=== PATIENT | female | born 1980 | race Caucasian/White ===

== ENCOUNTER → 2022-06-02 14:23 | Outpatient (BNVA) | payer MEDICAID, SELFPAY | PROVIDERS: PCP Family Medicine; Visit Provider Obstetrics & Gynecology | DX: Z01.818 Encounter for other preprocedural examination (principal); R87.611 Atypical squamous cells cannot exclude high grade squamous intraepithelial lesion on cytologic smear of cervix (ASC-H) | CPT/HCPCS: 81025; 88305; 88342 ==

== ENCOUNTER 2022-06-04 16:59 | Emergency (ER) | payer MEDICAID, SELFPAY ==
[2022-06-04 17:03] VITALS: BP 153/84; PULSE 87; RESP 18; TEMP 36.6; O2SAT 100
--- NOTE | 2022-06-04 17:08 | XRR_ITS ---
PROCEDURE INFORMATION: Exam: XR Chest Exam date and time: 06/04/2022 5:22 PM Age: 42 years old Clinical indication: Cough and dyspnea; Additional info: Dyspnea/cough TECHNIQUE: Imaging protocol: Radiologic exam of the chest. Views: 1 view. COMPARISON: No relevant prior studies available. FINDINGS: Lungs: Unremarkable. No consolidation. Bilateral probable nipple shadows. Pleural spaces: Unremarkable. No pleural effusion. No pneumothorax. Heart/Mediastinum: Unremarkable. No cardiomegaly. Bones/joints: Unremarkable. XR/XR chest 1V portable [id number] IMPRESSION: No acute findings.
--- NOTE | 2022-06-04 17:11 | W.ED.CHESTPA ---
HPI - Chest Pain General: Chief Complaint: Chest Pain Stated Complaint: SOB/chest tightness Time Seen by Provider: 06/04/22 17:07 Source: patient Mode of arrival: ambulatory History of Present Illness: 42-year-old female presents emergency room with complaint of sharp chest pain worse with inspiration with palpation is relieved by ibuprofen. She does not smoke but she does vape. She denies any fever sweats chills or productive cough. This has been going on for the last 4 days. No fever sweats chills no trauma. MD complaint: chest pain Onset (ago): day(s) (4) Pain location: parasternal Pain radiation: back Severity: moderate Quality: sharp Relieving factors: rest Exacerbating factors: inspiration, palpation and movement Associated symptoms: Deny abdominal pain, dyspnea, fever(s), nausea, palpitations or vomiting Review of Systems Const: Denies: fever(s), chills, body aches, change in appetite, fatigue or malaise ENMT: Denies: throat pain, ear or mastoid pain, nasal discharge or nasal congestion Card: Denies: chest pain, palpitations, irregular heart rhythm, edema, dyspnea on exertion or orthopnea Resp: Denies: dyspnea, productive cough or non-productive cough GI: Denies: abdominal pain, nausea, vomiting, hematemesis, coffee ground emesis, diarrhea, constipation, bloating, hematochezia or melena : Denies: flank pain, difficulty voiding, dysuria, urinary frequency or urinary urgency Skin/Breast: Denies: rash or pruritus PFSH ED PFSH: Medical History Anxiety and depression Asthma Current every day vaping quit smoking ~ 11/2021 Dental abscess Epidermoid cyst Nodule of skin of left lower leg Peripheral neuropathy Surgical History No pertinent past surgical history Family History Mother Diabetes Hypertension Grandmother Diabetes paternal Father Hypertension Denies family history of Colon cancer Ovarian cancer Heart disease Hypercholesteremia Breast cancer Uterine cancer Thyroid disease Stroke Social History Second hand smoke exposure: No Smoking risk assessment/counseling performed?: No Alcohol intake: current Alcohol intake frequency: few times a week Alcohol type: beer Desire information about alcohol rehabilitation?: No Counseling given: No Substance/Drug Use: never Desire information about substance/drug rehabilitation?: No Counseling given: No Physical Exam Const: COMMON NORMALS: no acute distress GENERAL APPEARANCE: cooperative and comfortable ORIENTATION/CONSCIOUSNESS: Yes awake, Yes oriented to person, Yes oriented to place and Yes oriented to time HENMT: COMMON NORMALS: normocephalic, atraumatic and hearing grossly normal bilaterally HEAD & SCALP: normocephalic and atraumatic Chest: OTHER: Reproducible pain with palpation across the sternum Resp: COMMON NORMALS: normal respiratory effort, No retractions, No use of accessory muscles and clear to auscultation bilaterally AUSCULTATION: clear to auscultation bilaterally Cardio: COMMON NORMALS: regular rate, regular rhythm and No murmurs present (Cardio) RATE: regular rate RHYTHM: regular rhythm GI: COMMON NORMALS: Soft to palpation and No hepatosplenomegaly present AUSCULTATION: Yes normoactive bowel sounds PALPATION: Yes Soft to palpation, No Tenderness to palpation present (GI), No Guarding due to palpation present (GI) and Yes No hepatosplenomegaly present Extremity: COMMON NORMALS: normal to inspection, capillary refill normal, no clubbing, cyanosis or edema, no calf tenderness and no pedal edema Neuro: SENSORIUM/ORIENTATION: Yes oriented to person, Yes oriented to place and Yes oriented to time Skin: COMMON NORMALS: no rashes or lesions noted GENERAL SKIN EXAM: no rashes or lesions noted Course Vital Signs: Vital signs: Vital Signs Temperature 97.8 F 06/04/22 17:03 Pulse Rate 80 06/04/22 17:30 Respiratory Rate 14 06/04/22 17:30 Blood Pressure 111/74 06/04/22 17:30 Pulse Oximetry 100 06/04/22 17:30 Oxygen Delivery Me thod Room Air 06/04/22 17:03 MDM - Chest Pain Medical Decision Making Pain reproducible with inspiration and palpation on the chest. EKG normal. Labs reviewed x-ray reviewed no acute findings. No pneumonia no fractures no pneumothorax. Symptoms not suggestive of PE. Will discharge patient home with anti-inflammatories. She did mention she had a rapid heart rate for a brief period of time was self terminating she is not had this before. Advised her if this persist to follow-up with her primary care doctor. While she was here there is no tachyarrhythmias noted on her monitor. Return if she has further problems. Medical Records I reviewed the patient's medical records. Lab Data I reviewed the patient's lab results. 06/04/22 17:20 06/04/22 17:20 Laboratory Results WBC 10.2 10^3/uL (4.0-10.0) H 06/04/22 17:20 RBC 4.97 10^6/uL (4.1-5.3) 06/04/22 17:20 Hgb 13.4 g/dL (11.5-15.3) 06/04/22 17:20 Hct 42.8 % (37.0-47.0) 06/04/22 17:20 MCV 86.1 fl (81-99) 06/04/22 17:20 MCH 27.0 pg (28.0-34.0) L 06/04/22 17:20 MCHC 31.3 g/dL (30.0-36.0) 06/04/22 17:20 RDW 14.1 % (12.1-15.1) 06/04/22 17:20 Plt Count 362 10^3/cmm (130-400) 06/04/22 17:20 MPV 9.0 fL (7.4-10.4) 06/04/22 17:20 Neut % (Auto) 67.7 % 06/04/22 17:20 Lymph % (Auto) 21.1 % 06/04/22 17:20 [place] % (Auto) 6.5 % 06/04/22 17:20 Eos % (Auto) 3.8 % 06/04/22 17:20 Baso % (Auto) 0.6 % 06/04/22 17:20 Neut # (Auto) 6.92 10^3/uL (1.8-7.7) 06/04/22 17:20 Lymph # (Auto) 2.2 10^3/uL (0.8-4.8) 06/04/22 17:20 [place] # (Auto) 0.7 10^3/uL (0.2-0.9) 06/04/22 17:20 Eos # (Auto) 0.4 10^3/uL (0.0-0.8) 06/04/22 17:20 Baso # (Auto) 0.1 10^3/uL (0.0-0.1) 06/04/22 17:20 Nucleated RBC % (auto) 0 % 06/04/22 17:20 Nucleated RBCs # 0.0 /100WBC 06/04/22 17:20 Sodium 138 mmol/L (136-145) 06/04/22 17:20 Potassium 3.4 mmol/L (3.5-5.1) L 06/04/22 17:20 Chloride 101 mmol/L (98-107) 06/04/22 17:20 Carbon Dioxide 26 mmol/L (22-29) 06/04/22 17:20 Anion Gap 14.4 (5-19) 06/04/22 17:20 BUN 16 mg/dL (6-20) 06/04/22 17:20 Creatinine 0.6 mg/dL (0.5-0.9) 06/04/22 17:20 GFR Calculation 110.2 mL/min (90-130) 06/04/22 17:20 Glucose 129 mg/dL (65-115) H 06/04/22 17:20 Calculated Osmolality 289 mOsm/kg (285-295) 06/04/22 17:20 Calcium 9.0 mg/dL (8.5-10.5) 06/04/22 17:20 Discharge Plan Discharge Patient Disposition: Home Clinical Impression: Musculoskeletal chest pain Condition: Stable Prescriptions: New diclofenac sodium 75 mg tablet,delayed release (DR/EC) 75 mg PO Q12H PRN (Reason: pain) Qty: 20 0RF No Action cetirizine [Zyrtec] 10 mg tablet 10 mg PO DAILY PRN (Reason: allergy symptoms) Qty: 60 0RF Discharge Orders: Discharge ED (Routine); Ordered 06/04/22 Ordered By: Kaveh Ayers Referrals: Malcolm Alexander MD [Primary Care Provider] - Discharge Diet: Usual diet Discharge Activity: Increase activity as tolerated Patient Instructions: Opioid Safety, Pain Management Activity Restrictions/Additional Instructions: You were seen today for chest pain that was reproducible with inspiration and palpation. This usually musculoskeletal chest pain your laboratory studies and EKG and chest x-ray are unremarkable. Use the anti-inflammatory given for relief of symptoms if your symptoms worsen or change recheck with your primary care doctor or return to the emergency room. Coding Level of Care Code ED Motion Picture Critic for Chilo Bermudez
--- NOTE | 2022-06-04 17:14 | ECG_ITS ---
[facility] Test Date: 2022-06-04 Pat Name: Debra Crowley Department: Room: Gender: Female [employer]: : 1980 Requested By: Kaevh Piña Order Number: [id number] Nav MD: Nahun Cox M.D. Measurements Intervals [place] Rate: 78 P: 40 PA: 137 QRS: 35 QRSD: 106 T: 56 QT: 374 QTc: 429 Interpretive Statements SINUS RHYTHM INCOMPLETE RIGHT BUNDLE BRANCH BLOCK [90+ ms QRS DURATION, TERMINAL R IN V1/V2, 40+ ms S IN I/aVL/V4/V5/V6] No previous ECG available for comparison Electronically Signed On 06-04-2022 22:32:44 CDT by Nahun Cox M.D. [email or web address]
--- NOTE | 2022-06-04 17:24 | PC.NURSE ---
Pt hooked up to continuous bedside prop cutter.
[2022-06-04 17:26] VITALS: PULSE 84; O2SAT 100
[2022-06-04 17:29] LABS: Basophils # 0.1 10^3/uL (0.0-0.1); Basophils % 0.6 %; Eosinophils # 0.4 10^3/uL (0.0-0.8); Eosinophils % 3.8 %; Hematocrit 42.8 % (37.0-47.0); Hemoglobin 13.4 g/dL (11.5-15.3); Lymphocytes # 2.2 10^3/uL (0.8-4.8); Lymphocytes % 21.1 %; Mean Corpuscular HGB Conc 31.3 g/dL (30.0-36.0); Mean Corpuscular Volume 86.1 fl (81-99); Monocytes # 0.7 10^3/uL (0.2-0.9); Monocytes % 6.5 %; Neutrophils # 6.92 10^3/uL (1.8-7.7); Neutrophils % 67.7 %; Nucleated Red Blood Cells % 0 %; Platelet Count 362 10^3/cmm (130-400); Red Blood Count 4.97 10^6/uL (4.1-5.3); Red Cell Distribution Width 14.1 % (12.1-15.1); White Blood Count 10.2 10^3/uL (4.0-10.0)
[2022-06-04] MEDS: ketorolac 30 mg/mL INJ IVP (17:29)
[2022-06-04 17:30] VITALS: BP 111/74; PULSE 80; RESP 14; O2SAT 100
[2022-06-04 17:51] LABS: Anion Gap 14.4 (5-19); Blood Urea Nitrogen 16 mg/dL (6-20); Carbon Dioxide 26 mmol/L (22-29); Chloride 101 mmol/L (98-107); Glomerular Filtration Rate 110.2 mL/min (90-130); Glucose 129 mg/dL (65-115); Osmolality Calculated 289 mOsm/kg (285-295); Potassium 3.4 mmol/L (3.5-5.1); Sodium 138 mmol/L (136-145)
[2022-06-04 17:59] VITALS: BP 113/78; PULSE 81; RESP 16; O2SAT 100
== END 2022-06-04 17:49 | disposition home or self-care (01) ==
PROVIDERS: Emergency Provider Family Medicine; PCP Family Medicine Adult Medicine
DX: R07.89 Other chest pain (principal); F17.290 Nicotine dependence, other tobacco product, uncomplicated
CPT/HCPCS: 71045; 80048; 85025; 93005; 96374; 99285; J1885

== ENCOUNTER → 2022-07-28 13:22 | Outpatient (BNVA) | payer MEDICAID, SELFPAY | PROVIDERS: PCP Family Medicine Adult Medicine; Visit Provider Obstetrics & Gynecology | DX: Z01.818 Encounter for other preprocedural examination (principal); D06.9 Carcinoma in situ of cervix, unspecified | CPT/HCPCS: 81025; 88307 ==

== ENCOUNTER → 2023-04-26 10:18 | Outpatient (BNVA) | payer MEDICAID, SELFPAY | PROVIDERS: PCP Family Medicine Adult Medicine; Visit Provider Family Medicine Adult Medicine | DX: R52 Pain, unspecified (principal); Z87.39 Personal history of other diseases of the musculoskeletal system and connective tissue; D06.9 Carcinoma in situ of cervix, unspecified; F41.9 Anxiety disorder, unspecified; F32.A Depression, unspecified; G62.9 Polyneuropathy, unspecified | CPT/HCPCS: 86140; 86160; 86162; 86235; 86255; 86376; 86431 ==